=== PATIENT | female | born 1990 | race Caucasian/White ===

== ENCOUNTER 2020-04-19 22:54 | Inpatient (IN) | payer BC ==
[2020-04-20] MEDS ORDERED: LIDOCAINE 0.5% (PF) 5 MG/ML (50 ML SDV) SQ PRN (00:13)
[2020-04-20] MEDS ORDERED: OXYTOCIN 10 UNIT/ML 1 ML VIAL IM PRN (00:13)
[2020-04-20] MEDS ORDERED: CARBOPROST TROMETHAMINE 250 MCG/ML 1 ML AMP IM PRN (00:13)
[2020-04-20] MEDS ORDERED: METHYLERGONOVINE 0.2 MG/ML 1 ML AMP IM PRN (00:13)
[2020-04-20] MEDS ORDERED: TERBUTALINE 1 MG/ML VIAL SQ PRN (00:13)
[2020-04-20] MEDS: LACTATED RINGERS 1,000 ML IV SCH ×5 (00:29→07:54)
[2020-04-20 00:41] LABS: Basophils % (A) 0 %; Eosinophils # (A) 0.2 k/uL (0-0.7); Eosinophils % (A) 1 %; HCT 43.2 % (34.0-46.0); HGB 14.9 gm/dL (11.4-16.0); Lymphocytes # (A) 1.9 k/uL (1.0-4.8); Lymphocytes % (A) 12 %; MCH 32.1 pg (25.0-35.0); MCHC 34.4 g/dL (31.0-37.0); MCV 93.1 fL (80.0-100.0); Mean Platelet Volume 9.3; Monocytes # (A) 0.6 k/uL (0-1.0); Monocytes % (A) 4 %; Neutrophils # (A) 13.2 k/uL (1.3-7.7); Neutrophils % (A) 83 %; Platelet Count 230 k/uL (150-450); RBC 4.65 m/uL (3.80-5.40); RDW 12.4 % (11.5-15.5); WBC 15.9 k/uL (3.8-10.6)
--- NOTE | 2020-04-20 08:02 | P.HPOB ---
History of Present Illness H&P Date: 04/20/20 Chief Complaint: Labor at 37-6/7 weeks This is a 30-year-old 2 para 0010 woman with an estimated due date of 05/05/2020 based on LMP consistent with first trimester ultrasound. She presents at 37-6/7 weeks gestation in spontaneous active labor. She had increasing contractions over the last 24 hours. Upon initial presentation to labor and delivery triage she was 4+ centimeters dilated and regularly anastasiya. She denied rupture of membranes or vaginal bleeding. Her has been complicated by positive covert infection during the . She recovered well. She's been followed with testing and serial growth ultrasounds all which have been reassuring. Laboratory data: Blood type A positive, antibody screen negative, rubella i mmune, VDRL nonreactive, hepatitis B surface antigen negative, HIV negative, gonorrhea and clinic cultures negative, group B strep culture negative. Patient received Tdap And influenza vaccines. Review of Systems All systems: negative Past Medical History Past Medical History: No Reported History History of Any Multi-Drug Resistant Organisms: None Reported Past Surgical History: Joint Replacement Additional Past Surgical History / Comment(s): ACL surgery 2007. Spangle tooth extraction Past Anesthesia/Blood Transfusion Reactions: No Reported Reaction Past Psychological History: No Psychological Hx Reported Smoking Status: Never smoker - Past Family History Mother Additional Family Medical History / Comment(s): Rheumatoid Arthritis Medications and Allergies Home Medications Medication Instructions Recorded Confirmed Type Pnv No.95/Ferrous Fum/Folic AC 1 tab PO DAILY 04/19/20 04/19/20 History [ Multivitamin Tablet] Allergies Allergy/AdvReac Type Severity Reaction Status Date / Time No Known Allergies Allergy Verified 04/19/20 23:11 Exam Vital Signs Temp Pulse Resp BP 04/20/20 00:39 97.1 F L 85 18 150/75 04/20/20 00:09 97.5 F L 89 16 126/73 Intake and Output 04/19/20 04/20/20 04/20/20 22:59 06:59 14:59 Output Total 800 Balance -800 Output: Urine 800 Other: Weight 80.739 kg Targeted physical exam is performed. Upon my initial evaluation the patient is comfortable with an epidural anesthetic. On pelvic examination she is 9+ centimeters dilated, 100% effaced and the vertex in the 0 station. Artificial rupture of membranes is undertaken and clear fluid is noted. heart tones are category 1 by external monitoring and she is anastasiya every 2-5 min utes spontaneously. Results Result Diagrams: 04/20/20 00:25 Abnormal Lab Results - Last 24 Hours (Table) 04/20/20 Range/Units 00:25 WBC 15.9 H (3.8-10.6) k/uL Neutrophils # 13.2 H (1.3-7.7) k/uL Assessment and Plan (1) 37 or more weeks gestation of Current Visit: Yes Status: Acute Code(s): [id number] - SNOMED Code(s): 74921076 (2) Spontaneous onset of labor Current Visit: Yes Status: Acute Code(s): KLH9396 - SNOMED Code(s): 16825040 Plan: 30-year-old 2 para 0010 woman admitted at 37-6/7 weeks gestation in spontaneous active labor. She is group B strep negative and Rh+. status reassuring. Anticipate spontaneous vaginal delivery.
[2020-04-20] MEDS ORDERED: OXYTOCIN 30 UNITS/500 ML NS 30 UNIT in SALINE 1 500ML.BAG IV SCH ×2 (08:30→10:30)
--- NOTE | 2020-04-20 10:15 | P.PROBDLV ---
Vaginal Delivery Note - . Vaginal Delivery Note: Findings: Male infant in the vertex right occiput anterior position with Apgars of 9 at 1 minute and 9 at 5 minutes weighing 7 lbs. 2 oz., 3250 g. Intact, three-vessel cord placenta. No perineal lacerations. EBL approximately 150 mL's. Delivery summary: This is a 30-year-old 2 para 0010 woman who presented at 37-6/7 weeks gestation in spontaneous active labor. She was admitted and received an epidural anesthetic. She underwent artificial rupture of membranes at 9 cm dilated. She did require Pitocin augmentation for irregular contractions on the late first stage. She did progress to complete cervical dilation and had an approximately 1 hour second stage of labor. She had some early timed variable decelerations throughout the second stage of labor with good overall variability and return to baseline. With the patient was repositioned, prepped and draped in the dorsal modified Jeff position. With additional maternal effort the head delivered from the right occiput anterior position. The anterior followed by the posterior shoulders were delivered without difficulty and the rest the was delivered onto the field. The nose and mouth were bulb suctioned. The infant was placed on the maternal abdomen. The cord is eventually clamped and cut. Apgars were 9 at 1 minute and 9 at 5 minutes and weight was 7 lbs. 2 oz. The bladder was drained for approximately 300 mL of clear urine and then an intact, three-vessel cord placenta was delivered after approximately 5 minute third stage of labor. The perineum was then inspected as was the cervix and vagina and no further lacerations were noted. The uterus was massaged and was noted to be firm below the level of the umbilicus. EBL was approximately 150 mL's. Both mother and infant were doing well post delivery in the room.
[2020-04-20] MEDS ORDERED: SIMETHICONE 80 MG CHEWABLE PO PRN (10:16)
[2020-04-20] MEDS ORDERED: ZOLPIDEM 5 MG TAB PO PRN (10:16)
[2020-04-20] MEDS ORDERED: BENZOCAINE/MENTHOL SPRAY 1 GM/SPRAY AEROSOL TOPICAL PRN (10:16)
[2020-04-20] MEDS ORDERED: diphenhydrAMINE 50 MG/ML 1 ML VIAL IVP PRN ×2 (10:16)
[2020-04-20] MEDS ORDERED: diphenhydrAMINE 25 MG CAP PO PRN (10:16)
[2020-04-20] MEDS ORDERED: HYDROCORTISONE 2.5% RECTAL CREAM 30 GM TUBE RECTAL PRN (10:16)
[2020-04-20] MEDS ORDERED: ACETAMINOPHEN TAB 325 MG TAB PO PRN (10:16)
[2020-04-20] MEDS ORDERED: LANOLIN CREAM 5 GM TUBE TOPICAL PRN (10:16)
[2020-04-20] MEDS ORDERED: diphenhydrAMINE 50 MG CAP PO PRN (10:16)
[2020-04-20] MEDS: IBUPROFEN 600 MG TAB PO SCH ×3 (13:34→23:55)
[2020-04-20] MEDS: SENNOSIDES-DOCUSATE SODIUM 1 EACH TAB PO SCH (23:55)
[2020-04-21] MEDS ORDERED: ROPIVACAINE 5MG/ML 20ML VIAL ONE (00:48)
[2020-04-21] MEDS ORDERED: SODIUM CHLORIDE 0.9% 100 ML BAG ONE (00:48)
[2020-04-21] MEDS ORDERED: fentaNYL (PF) 50 MCG/ML 5 ML AMP ONE (00:48)
[2020-04-21] MEDS: IBUPROFEN 600 MG TAB PO SCH (06:24)
[2020-04-21 07:55] VITALS: BP 109/75; PULSE 98; RESP 18; TEMP 98
[2020-04-21] MEDS: SENNOSIDES-DOCUSATE SODIUM 1 EACH TAB PO SCH (08:00)
--- NOTE | 2020-04-21 08:34 | P.MSEPDOC ---
Presenting Problems - Arrival Data Date of Arrival on Unit: 04/20/20 Time of Arrival on Unit: 00:20 Mode of Transport: Wheelchair - Complaint OB-Reason for Admission/Chief Complaint: Possible Onset of Labor Comment: Patient presents with contractions approximately every 4-5 minutes since around 2029 this evening, denies leaking of fluid. Medical History - Information : 1 Para: 0 Term: 0 : 0 Abortions: Spontaneous or Elective: 0 Number of Living Children: 0 - Gestational Age Gestational Age by CHANDRA (wks/days): 37 Weeks and 6 Days - History Comment: Patient had covid in November 2019. Patient has been doing weekly NSTs Review of Systems - Review of Systems Constitutional: No problems Breast: No problems ENT: No problems Cardiovascular: No problems Respiratory: No problems Gastrointestinal: No problems Genitourinary: No problems Musculoskeletal: No problems Neurological: No problems Skin: No problems Vital Signs - Temperature Temperature: 98.0 F Temperature Source: Axillary - Pulse Pulse Oximetery Pulse Rate: 98 Pulse Assessment Method: Pulse Oximetry - Respirations Respiratory Rate: 18 Oxygen Delivery Method: Room Air O2 Sat by Pulse Oximetry: 98 - Blood Pressure Sitting Blood Pressure: 109/75 Blood Pressure Mean: 86 Blood Pressure Source: Automatic Cuff Medical Screen Scoring (Pre) - Cervical Exam Dilation: 4-7 cm = 2 Effacement: More than 50% = 2 Membranes: Intact - Uterine Contractions Frequency: > or = 36 weeks =2 Duration: > 40 seconds = 2 Intensity: N/A - Maternal Vital Signs Maternal Temperature: N/A Maternal Blood Pressure: N/A Signs of Preeclampsia: N/A Maternal Respirations: N/A - Maternal Trauma Maternal Trauma: N/A - Assessment - Baby A Baseline FHR: 140 Heart Rate - NICHD Category: Category I (Normal) = 0 NST: Reactive Position: N/A Station: N/A - Total Score - Baby A Total Score - Baby A: 8 - Total Score - Baby B Total Score - Baby B: 8 - Total Score - Baby C Total Score - Baby C: 8 - Level of Risk - Baby A Level of Risk - Baby A: Medium (6-9) - Level of Risk - Baby B Level of Risk - Baby B: Medium (6-9) - Level of Risk - Baby C Level of Risk - Baby C: Medium (6-9) Physician Notification (Pre) - Physician Notified Physician Notified Date: 04/20/20 Physician Notified Time: 00:08 New Order Received: Yes - Notification Comment Comment: Orders given to admit patient for labor, patient may have an epidural if and when needed Disposition - Disposition OB Disposition: Admit, LDRP Suite Transferred to:: Suite 14 I agree with the RN Medical Screening Exam: No Physician's MSE Comment: wrong physician Case reviewed; plan agreed upon as documented in EMR&OBIX.: No Comments: wrong physician Diagnosis: Term labor
[2020-04-21 09:19] LABS: Basophils # (A) 0.1 k/uL (0-0.2); Basophils % (A) 0 %; Eosinophils # (A) 0.1 k/uL (0-0.7); Eosinophils % (A) 1 %; HCT 36.4 % (34.0-46.0); HGB 12.2 gm/dL (11.4-16.0); Lymphocytes # (A) 2.7 k/uL (1.0-4.8); Lymphocytes % (A) 18 %; MCH 31.5 pg (25.0-35.0); MCHC 33.4 g/dL (31.0-37.0); MCV 94.1 fL (80.0-100.0); Mean Platelet Volume 9.6; Monocytes # (A) 0.7 k/uL (0-1.0); Monocytes % (A) 4 %; Neutrophils # (A) 11.9 k/uL (1.3-7.7); Neutrophils % (A) 76 %; Platelet Count 175 k/uL (150-450); RBC 3.87 m/uL (3.80-5.40); RDW 13.3 % (11.5-15.5); WBC 15.6 k/uL (3.8-10.6)
--- NOTE | 2020-04-21 10:00 | P.DS ---
Providers Date of admission: 04/20/20 00:09 Expected date of discharge: 04/21/20 Attending physician: Odalys Camarillo Primary care physician: Stated None - Discharge Diagnosis(es) (1) 37 or more weeks gestation of Current Visit: Yes Status: Acute (2) Spontaneous onset of labor Current Visit: Yes Status: Acute (3) Normal spontaneous vaginal delivery Current Visit: Yes Status: Acute Hospital Course: G2 now P1001 wpman admiltted at 37 6/7 weeks in active labor. Follwoing admission recieved an epidural, pitocin augmentation and eventually delivered liveborm male infant over intact perineum. See delivery summary for details. Post course was unremarkable. Minimal lochia, vitals stable, voiding without difficulty. Labs wnl. Discharged home on PPD 1 with routine instructions for care and follow up. Follow up in office in 6 weeks PP. Procedures: Patient Condition at Discharge: Good Plan - Discharge Summary New Discharge Prescriptions: No Action Pnv No.95/Ferrous Fum/Folic AC [ Multivitamin Tablet] 1 tab PO DAILY Discharge Medication List Pnv No.95/Ferrous Fum/Folic AC [ Multivitamin Tablet] 1 tab PO DAILY 04/19/20 [History] Follow up Appointment(s)/Referral(s): Odalys Camarillo MD [STAFF PHYSICIAN] - 6 Weeks Discharge Disposition: HOME SELF-CARE
== END 2020-04-21 12:00 | disposition home or self-care (01) | DRG 807 ==
LOC: FBPOP 22:54 → 4FBP 04-20 00:09
PROVIDERS: ADMIT Obstetrics & Gynecology; ATTEND Obstetrics & Gynecology
PROC: 10E0XZZ Delivery of Products of Conception, External Approach (ICD-10-PCS; principal; 2020-04-20)
PROC: 10907ZC Drainage of Amniotic Fluid, Therapeutic from Products of Conception, Via Natural or Artificial Opening (ICD-10-PCS; 2020-04-20)
PROC: 3E0R3BZ Introduction of Anesthetic Agent into Spinal Canal, Percutaneous Approach (ICD-10-PCS; 2020-04-20)
DX: O76 Abnormality in fetal heart rate and rhythm complicating labor and delivery (principal); Z37.0 Single live birth; Z3A.37 37 weeks gestation of pregnancy; Z79.899 Other long term (current) drug therapy; Z86.16 Personal history of COVID-19
CPT/HCPCS: 59025; 85025; 86850; 86900; 86901; 99213